=== PATIENT | female | born 1975 | race Caucasian/White ===

== ENCOUNTER 2016-05-13 09:59 | Emergency (ER) | payer OTHER ==
[~2016-05-13] VITALS: Wt 55.5 kg
[2016-05-13 10:41] LABS: URINE BLOOD (Dip) POC Trace-intact (NEGATIVE)
[2016-05-13] MEDS ORDERED: CEPH-443 PO (11:17)
--- NOTE | 2016-05-13 11:40 | ERD ---
ER Documentation Chief Complaint Date/Time DATE: 05/13/16 TIME: 11:37 Chief Complaint states she needs a test HPI Patient is a 40-year-old female who presents to the ED for test. She denies fever, chills, nausea, vomiting, diarrhea, pelvic pain, vaginal bleeding or pain. She is unsure of her last normal period and states that she did not have a period in March. Last normal menstrual period was sometime in February. She is currently sexually active with her and does not use protection. She is not on control. She has no pelvic pain. She has no complaints today. ROS All systems reviewed and are negative except as per history of present illness. Medications Home Meds Active Scripts Cephalexin* (Keflex*) 500 Mg Capsule, 500 MG PO BID for 7 Days, CAP Prov:ELVIA COLLIER PA-C 05/13/16 PMhx/Soc Medical and Surgical Hx: pt denies Medical Hx, pt denies Surgical Hx History of Surgery: No Anesthesia Reaction: No Hx Neurological Disorder: No Hx Respiratory Disorders: No Hx Cardiac Disorders: No Hx Psychiatric Problems: No Hx Miscellaneous Medical Probl: No Hx Alcohol Use: No Hx Substance Use: No Hx Tobacco Use: No Smoking Status: Never smoker FmHx Family History: No coronary disease, No diabetes, No other Physical Exam Vitals Vital Signs Date Time Temp Pulse Resp B/P Pulse Ox O2 Delivery O2 Flow Rate FiO2 05/13/16 10:11 98.2 82 20 110/56 99 Physical Exam GENERAL: Well-developed, well-nourished female. Appears in no acute distress. LUNG: Clear to auscultation bilaterally. No rhonchi, wheezing, rales or coarse breath sounds. HEART: Regular rate and rhythm. No murmurs, rubs or gallops. ABDOMEN: No scars, ecchymosis or rashes noted. Soft, nontender, and nondistended. Positive bowel sounds in all four quadrants. No rebound tenderness , no guarding. (-) McBurneys point tenderness. No CVA tenderness. SKIN: Normal color. Warm and dry. No rashes or lesions. Capillary refill < 2 seconds Results 24 hrs Laboratory Tests Test 05/13/16 10:44 Bedside Urine Blood Trace-intact Bedside Urine Glucose (UA) Negative Bedside Urine Ketones (LAB) Negative Bedside Urine Leukocyte Esterase (L Trace Bedside Urine Nitrite (LAB) Positive Bedside Urine Protein (LAB) Negative Bedside Urine pH (LAB) 7.0 Procedures/MDM ER COURSE: I kept the patient and/or family informed of laboratory and diagnostic imaging results throughout the emergency room course. LAB INTERPRETATION: UA showed positive nitrites, trace leukocytes and no hematuria urine test was positive MEDICAL DECISION MAKING: This is a 40-year-old female who presents with test check. Vital signs were reviewed. Patient is afebrile. Patient is not hypoxic. Patient has positive . Patient also has positive nitrites and trace leukocytes. Patient has a UTI. She does not have CVA tenderness is afebrile. She has no pelvic pain or vaginal bleeding and no complaints today in the ED. Low suspicion for ovarian torsion, PID, tuboovarian abscess, ectopic , bowel obstruction, pyelonephritis, UTI, appendicitis, cervicitis, septic , molar , HELLP syndrome, preeclampsia, eclampsia, placenta previa, placenta abruptia. I do not think a workup such as ultrasound blood work is necessary at this time as patient does not have pelvic pain and does not have bleeding. DISCHARGE: At this time, patient is stable for discharge and outpatient management with no new complaints during the ER course. Patient was sent home with Keflex and names of OB doctors in the area for patient to follow-up with.. Patient will be discharged home with instructions to recheck for new or worsening symptoms such as fever, nausea, weakness, LOC and to follow up with primary care in the next 1 -2 days. Patient was advised to return to the ER for any new or worsening symptoms. Plan was discussed and patient and/or family understands and agrees. Home instructions were given. Departure Diagnosis: Primary Impression: UTI (urinary tract infection) Urinary tract infection type: site unspecified Hematuria presence: without hematuria Qualified Code: N39.0 - Urinary tract infection without hematuria, site unspecified Additional Impressions: Positive urine test Encounter for laboratory test Condition: Stable Referrals: [facility] Hours: 8:00 am - 5:00 pm [facility] [place] [id number] [facility] [address] [place] [id number]ABUSLEME [address] [place] [address] DR. HENRY, JOSELINE [address] [place] [address] DR [facility] [address] [facility], [address] [address] DR [facility] [address] [place] [address] [facility] [address] [place] [address] [facility] [address] - DR FRITZ, [place] [address], [place] [address] [place], [place] [address] [facility]. [address], [place] [address] DR BARRIOS, FARID [address] [place] [address] Additional Instructions: Llame al doctor MAANA y carlos sonia GENA PARA DENTRO DE 1-2 WELSH.Dgale a la secretaria que nosotros le instruimos hacer esta gena.Avise o llame si pérez condicin se empeora antes de la gena. Regresa aqui si peor o no mejor. ELVIA COLLIER PA-C May 13, 2016 11:40
== END 2016-05-13 11:39 | disposition home or self-care (01) ==
LOC: FTE 09:59
DX: N39.0 Urinary tract infection, site not specified (principal); Z32.01 Encounter for pregnancy test, result positive
CPT/HCPCS: 81003; Z7502; 99283

== ENCOUNTER 2016-06-01 09:05 | Emergency (ER) | payer OTHER ==
[~2016-06-01] VITALS: Wt 68.0 kg
[~2016-06-01 09:05] MED LIST: CEPH-443 PO
[2016-06-01 11:37] LABS: ADD UMIC YES; URINE BILIRUBIN (Dip) NEGATIVE (NEGATIVE); URINE BLOOD (Dip) 3+ (NEGATIVE); URINE COLOR LT. YELLOW (YELLOW); URINE GLUCOSE (Dip) NEGATIVE (NEGATIVE); URINE KETONES (Dip) NEGATIVE (NEGATIVE); URINE LEUKOCYTE ESTERASE (Dip) NEGATIVE (NEGATIVE); URINE NITRITE (Dip) NEGATIVE (NEGATIVE); URINE TOTAL PROTEIN (Dip) NEGATIVE (NEGATIVE); URINE UROBILINOGEN (Dip) 0.2 E.U./dL (0.1-1.0)
--- NOTE | 2016-06-01 11:56 | RADRPT ---
PROCEDURE: US OB. CLINICAL INDICATION: Vaginal bleeding. TECHNIQUE: Transabdominal and transvaginal imaging of the gravid uterus was performed. Images are reviewed on a high-resolution PACS workstation. COMPARISON: None available. FINDINGS: A single intrauterine with a gestational sac and yolk sac is seen. No pole is ident ified. The mean sac diameter equals 0.74 cm. The estimated gestational age equals 5 weeks 2 days b y ultrasound criteria. No subchorionic hemorrhage is identified. The uterus measures 7.3 x 4.2 x 4.6 cm. The right ovary measures 2.0 x 1.4 x 1.6 cm and the left ova ry measures 3.3 x 1.9 x 2.1 cm. There is normal flow demonstrated within both ovaries. There is a be nign 1.9 cm simple left ovarian cyst. There are no adnexal masses and there is no free fluid within the pelvis. IMPRESSION: 1. Single intrauterine with an estimated gestational age of 5 weeks 2 days by ultrasound criteria and an estimated date of delivery of 01/30/2017. 2. Benign 1.9 cm left ovarian cyst. RPTAT: GG .Jerry Contreras MD, Date Time Electronically viewed and signed by .Jerry Contreras MD, MD on 06/01/2016 11:55 .P/
[2016-06-01 12:08] LABS: ADD SCAN DIFF NO
[2016-06-01 12:15] LABS: BASOPHILS % 0.1 % (0.0-2.0); EOSINOPHILS # 0.1 10^3/ul (0.0-0.5); HEMATOCRIT 34.1 % (37.0-47.0); HEMOGLOBIN 11.7 g/dl (12.0-16.0); LYMPHOCYTES # 1.2 10^3/ul (0.8-2.9); LYMPHOCYTES % 12.7 % (15.0-51.0); MEAN CORPUSCULAR HEMOGLOBIN 34.4 pg (29.0-33.0); MEAN CORPUSCULAR HGB CONC 34.3 g/dl (32.0-37.0); MEAN CORPUSCULAR VOLUME 100.3 fl (82.0-101.0); MEAN PLATELET VOLUME 8.4 fl (7.4-10.4); MONOCYTE # 0.6 10^3/ul (0.3-0.9); MONOCYTES % 6.4 % (0.0-11.0); NEUTROPHIL # 7.5 10^3/ul (1.6-7.5); NEUTROPHILS % 79.6 % (39.0-77.0); PLATELET COUNT 333 10^3/UL (140-415); RED CELL DISTRIBUTION WIDTH 12.3 % (11.5-14.5); WHITE BLOOD COUNT 9.5 10^3/ul (4.8-10.8)
[2016-06-01 12:16] LABS: MUCUS,URINE FEW
--- NOTE | 2016-06-01 14:22 | ERD ---
ER Documentation Chief Complaint Date/Time DATE: 06/01/16 TIME: 14:16 Chief Complaint VAG BLEED 6 WEEKS PREG HPI 40-year-old female presents to the ED for vaginal bleeding that started intermittently 1 week ago. States that she has had to change one pad per day. States that she is currently taking Macrobid for her urinary tract infection since she is experiencing hematuria. States that her last menses was on March 28, 2016. Reports that she is taking , folic acid, calcium, ferrous sulfate. Reports that her DIRECTOR OF PROPERTY MANAGEMENT is Dr. Silverman. Denies any chest pain, shortness of breath, abdominal pain, nausea, vomiting, diarrhea, vaginal discharge. ROS All systems reviewed and are negative except as per history of present illness. Medications Home Meds Active Scripts Cephalexin* (Keflex*) 500 Mg Capsule, 500 MG PO BID for 7 Days, CAP Prov:ELVIA COLLIER PA-C 05/13/16 Allergies Allergies: Coded Allergies: No Known Allergy (Unverified , 06/01/16) PMhx/Soc Medical and Surgical Hx: pt denies Medical Hx, pt denies Surgical Hx History of Surgery: No Anesthesia Reaction: No Hx Neurological Disorder: No Hx Respiratory Disorders: No Hx Cardiac Disorders: No Hx Psychiatric Problems: No Hx Miscellaneous Medical Probl: No Hx Alcohol Use: No Hx Substance Use: No Hx Tobacco Use: No Smoking Status: Never smoker Physical Exam Vitals Vital Signs Date Time Temp Pulse Resp B/P Pulse Ox O2 Delivery O2 Flow Rate FiO2 06/01/16 09:17 99.0 78 18 98/54 99 Physical Exam Const: [id number], well-nourished. In no acute distress. Head: Atraumatic, normocephalic Eyes: Normal Conjunctiva without injection. No purulent discharge. ENT: Normal external ear, nose. Moist oropharynx without tonsillar exudates. Non -erythematous pharynx. Uvula midline. No drooling. No trismus. Neck: No cervical midline tenderness. Full range of motion. No meningismus. No cervical lymphadenopathy. No JVD. Resp: Clear to auscultation bilaterally. No wheezing, rhonchi, rales, or crackles. No accessory muscle use. No retractions. Cardio: Regular rate and rhythm. No murmurs, rubs or gallops. Abd: Soft, non distended. Normal bowel sounds. No palpable masses. No rebound tenderness. No guarding. Negative McBurney's point. Negative psoas sign. Negative obturator sign. : See exam in [facility]. Skin: No petechiae or rashes Back: No midline tenderness. No CVA tenderness. Ext: No cyanosis, or edema. Neur: Awake and alert. Normal gait. Normal coordination. Psych: Normal Mood and Affect Result Diagram: 06/01/16 1200 Results 24 hrs Laboratory Tests Test 06/01/16 11:00 06/01/16 12:00 Urine Amorphous Phosphates FEW Urine Bilirubin NEGATIVE Urine Clarity CLEAR Urine Color LT. YELLOW Urine Glucose NEGATIVE% Urine Hemoglobin 3+ Urine Ketones NEGATIVE Urine Leukocyte Esterase NEGATIVE Urine Microscopic RBC 10-25/HPF Urine Microscopic WBC NONE SEEN/HPF Urine Mucus FEW Urine Nitrite NEGATIVE Urine Specific Purdys 1.020 Urine Total Protein NEGATIVE Urine Urobilinogen 0.2 E.U./dL Urine pH 6.0 Basophils # 0.010^3/ul Basophils % 0.1% Beta HCG, Quantitative 60223.0mIU/ml Eosinophils # 0.110^3/ul Eosinophils % 1.0% Hematocrit 34.1% Hemoglobin 11.7g/dl Lymphocytes # 1.210^3/ul Lymphocytes % 12.7% Mean Corpuscular Hemoglobin 34.4pg Mean Corpuscular Hemoglobin Concent 34.3g/dl Mean Corpuscular Volume 100.3fl Mean Platelet Volume 8.4fl Monocytes # 0.610^3/ul Monocytes % 6.4% Neutrophils # 7.510^3/ul Neutrophils % 79.6% Nucleated Red Blood Cells # 0.010^3/ul Nucleated Red Blood Cells % 0.0/100WBC Platelet Count 86782^3/UL Red Blood Count 3.4010^6/ul Red Cell Distribution Width 12.3% White Blood Count 9.510^3/ul Procedures/[facility] 40-year-old female with no significant past medical history presents the ED complaining of vaginal bleeding and is currently . Patient is afebrile and nontoxic-appearing. Patient has normal vital signs. An ultrasound, beta- hCG, CBC, type and RH, UA was ordered to evaluate patient. CBC: No evidence of severe infection or anemia Urine: No elevation in nitrites, leukocyte esterase, hematuria. No evidence of UTI Rh: A positive No indication for Rhogam at this time. beta Hc PROCEDURE: US OB. CLINICAL INDICATION: Vaginal bleeding. TECHNIQUE: Transabdominal and transvaginal imaging of the gravid uterus was performed. Images are reviewed on a high-resolution PACS workstation. COMPARISON: None available. FINDINGS: A single intrauterine with a gestational sac and yolk sac is seen. No pole is identified. The mean sac diameter equals 0.74 cm. The estimated gestational age equals 5 weeks 2 days by ultrasound criteria. No subchorionic hemorrhage is identified. The uterus measures 7.3 x 4.2 x 4.6 cm. The right ovary measures 2.0 x 1.4 x 1.6 cm and the left ovary measures 3.3 x 1.9 x 2.1 cm. There is normal flow demonstrated within both ovaries. There is a benign 1.9 cm simple left ovarian cyst. There are no adnexal masses and there is no free fluid within the pelvis. IMPRESSION: 1. Single intrauterine with an estimated gestational age of 5 weeks 2 days by ultrasound criteria and an estimated date of delivery of 01/30/2017. 2. Benign 1.9 cm left ovarian cyst. Patient's bleeding symptoms have stabilized while in the department. Patient has a single intrauterine estimated to be 5 weeks and 2 days based on ultrasound. Low suspicion for symptomatic anemia, ectopic , sepsis, PID, appendicitis, ovarian torsion, tubo-ovarian abscess, surgical abdomen, or other emergent conditions. Patient was educated that there is a risk for threatened . Patient to follow up with DIRECTOR OF PROPERTY MANAGEMENT in 2 days for further evaluation and treatment. Patient is to return sooner to the ED for any worsening symptoms. Patient's questions were answered. Patient understood and agreed with discharge plan. Departure Diagnosis: Primary Impression: Vaginal bleeding in patient at less than 20 weeks ges... Condition: Stable Patient Instructions: Bleeding During Early Referrals: NORM MOSLEY MD (PCP) [facility] YOU HAVE RECEIVED A MEDICAL SCREENING EXAM AND THE RESULTS INDICATE THAT YOU DO NOT HAVE A CONDITION THAT REQUIRES URGENT TREATMENT IN THE EMERGENCY DEPARTMENT. FURTHER EVALUATION AND TREATMENT OF YOUR CONDITION CAN WAIT UNTIL YOU ARE SEEN IN YOUR DOCTORS OFFICE WITHIN THE NEXT 1-2 DAYS. IT IS YOUR RESPONSIBILITY TO MAKE AN APPOINTMENT FOR FOLOW-UP CARE. IF YOU HAVE A PRIMARY DOCTOR --you should call your primary doctor and schedule an appointment IF YOU DO NOT HAVE A PRIMARY DOCTOR YOU CAN CALL OUR PHYSICIAN REFERRAL HOTLINE AT IF YOU CAN NOT AFFORD TO SEE A PHYSICIAN YOU CAN CHOSE FROM THE FOLLOWING [facility] [address] [facility] [address] [address] [facility] [address] [facility] [address] [facility] [address] [facility]. [facility] [address] [facility]. [facility] YOU HAVE RECEIVED A MEDICAL SCREENING EXAM AND THE RESULTS INDICATE THAT YOU DO NOT HAVE A CONDITION THAT REQUIRES URGENT TREATMENT IN THE EMERGENCY DEPARTMENT. FURTHER EVALUATION AND TREATMENT OF YOUR CONDITION CAN WAIT UNTIL YOU ARE SEEN IN YOUR DOCTORS OFFICE WITHIN THE NEXT 1-2 DAYS. IT IS YOUR RESPONSIBILITY TO MAKE AN APPOINTMENT FOR FOLOW-UP CARE. IF YOU HAVE A PRIMARY DOCTOR --you should call your primary doctor and schedule and appointment IF YOU DO NOT HAVE A PRIMARY DOCTOR YOU CAN CALL OUR PHYSICIAN REFERRAL HOTLINE AT . IF YOU CAN NOT AFFORD TO SEE A PHYSICIAN YOU CAN CHOSE FROM THE FOLLOWING [facility]: [facility] [address] [place] [address] [facility] [address] [place] [address] [facility] [address] [place] [address] DIRECTOR OF PROPERTY MANAGEMENT [place] [address] [facility] [address] [place], [place] [id number] OFFICE FAX , ELVIS [address] [place] [address] DR. HENRY, VALENTINE [address] [place], [place] [id number] DR MOREAU [facility] [address] [facility], [address], [place] [address] FER FRANCOOZ [address] [facility], [place] [address] [facility] [address] [place] [address] [facility], [facility] [address] - CAMRON SANCHEZ [address], [place] [address] [place] [address] [facility]. [address], [place] [address] LUCA MCKNIGHT [address] [place], [place] [id number] [facility] Hours: 8:00 am - 5:00 pm Additional Instructions: FOLLOW UP WITH YOUR DIRECTOR OF PROPERTY MANAGEMENT in 2 days. Return to this facility if you are not improving as expected. ZARINA DEUTSCH PA-C Jun 01, 2016 14:22
[2016-06-01 14:48] VITALS: BP 103/74; PULSE 72; RESP 18; TEMP 98.7
== END 2016-06-01 14:47 | disposition home or self-care (01) ==
LOC: FTE 09:05
DX: O20.9 Hemorrhage in early pregnancy, unspecified (principal); Z3A.01 Less than 8 weeks gestation of pregnancy
CPT/HCPCS: 76801; 76817; 81001; 84702; 85025; 86900; 86901; Z7502; 81003

== ENCOUNTER 2016-06-04 21:43 | Emergency (ER) | payer OTHER ==
[~2016-06-04] VITALS: Ht 160 cm; Wt 56.0 kg
[2016-06-04 21:46] VITALS: Ht 160 cm; Wt 56.0 kg
[2016-06-04] MEDS ORDERED: ACETAMINOPHEN 325 MG TAB PO STA (22:35)
[2016-06-04 23:06] LABS: ADD SCAN DIFF NO
[2016-06-04 23:36] LABS: ADD UMIC YES; URINE BILIRUBIN (Dip) NEGATIVE (NEGATIVE); URINE BLOOD (Dip) 3+ (NEGATIVE); URINE COLOR DK. RED (YELLOW); URINE KETONES (Dip) 15 (NEGATIVE); URINE LEUKOCYTE ESTERASE (Dip) 2+ (NEGATIVE); URINE NITRITE (Dip) POSITIVE (NEGATIVE); URINE TOTAL PROTEIN (Dip) 4+ (NEGATIVE); URINE UROBILINOGEN (Dip) 2.0 E.U./dL (0.1-1.0)
[2016-06-04 23:39] LABS: URINE RBCS >200 /HPF (0)
[2016-06-04 23:40] LABS: BACTERIA,URINE MODERATE; SQUAMOUS EPITHELIAL CELL,UR MANY
[2016-06-04 23:54] LABS: BASOPHILS % 0.2 % (0.0-2.0); EOSINOPHILS % 0.3 % (0.0-7.0); HEMATOCRIT 36.7 % (37.0-47.0); HEMOGLOBIN 12.7 g/dl (12.0-16.0); LYMPHOCYTES # 1.4 10^3/ul (0.8-2.9); LYMPHOCYTES % 10.4 % (15.0-51.0); MEAN CORPUSCULAR HEMOGLOBIN 34.7 pg (29.0-33.0); MEAN CORPUSCULAR HGB CONC 34.6 g/dl (32.0-37.0); MEAN CORPUSCULAR VOLUME 100.3 fl (82.0-101.0); MEAN PLATELET VOLUME 8.7 fl (7.4-10.4); MONOCYTE # 0.7 10^3/ul (0.3-0.9); MONOCYTES % 5.3 % (0.0-11.0); NEUTROPHIL # 10.9 10^3/ul (1.6-7.5); NEUTROPHILS % 83.4 % (39.0-77.0); PLATELET COUNT 362 10^3/UL (140-415); RED BLOOD COUNT 3.66 10^6/ul (4.20-5.40); RED CELL DISTRIBUTION WIDTH 12.2 % (11.5-14.5)
--- NOTE | 2016-06-05 00:59 | RADRPT ---
PROCEDURE: US OB. CLINICAL INDICATION: , vaginal bleeding. TECHNIQUE: Multiple sonographic images of the pelvis were obtained. Transabdominal and transvagin al views of the pelvis are available for review. The images were reviewed on a PACS workstation. COMPARISON: No prior studies are available for comparison. FINDINGS: The uterus measures 7.1 x 3.8 x 4.6 cm. No intrauterine is identified. The endometrium is mildly heterogeneous and contains minimal vascularity. The endometrial thickness measures 1.1 cm. The right ovary measures 2.4 x 0.8 x 1.2 cm. The left ovary measures 2.6 x 1.5 x 2.0 cm. There is a 1.9 cm simple left ovarian cyst, probably a corpus luteum. Blood flow is demonstrated to both ovari es. The adnexa are unremarkable. There is no free pelvic fluid. IMPRESSION: 1. No intrauterine is identified. If there is clinical concern for ectopic , cl ose follow-up with serial Beta HCG and possible repeat pelvic ultrasound is recommended. 2. Mildly heterogeneous and slightly vascular endometrium, nonspecific. 3. Left ovarian corpus luteum cyst. RPTAT: HTAR .Arnol De La Rosa MD, Date Time Electronically viewed and signed by .Arnol De La Rosa MD, on 06/05/2016 00:59 .R/
[2016-06-05] MEDS ORDERED: ACET325T33 PO (01:16)
[2016-06-05 01:46] VITALS: BP 108/55; PULSE 84; RESP 16
--- NOTE | 2016-06-05 04:15 | ERD ---
ER Documentation Chief Complaint Date/Time DATE: 06/05/16 TIME: 04:07 Chief Complaint 5 weeks , vag bleeding today HPI This patient is a 40-year-old female who is presenting to the emergency department with complaints of "losing her baby." The patient states she went to the bathroom approximately 1 hour ago and saw lots of blood with a lobular structure in the toilet. The patient brought the specimen in a cup to the emergency department. The patient was seen here 3 days ago and had a normal ultrasound with intrauterine at approximately 5 weeks. The patient additionally reports some suprapubic cramping bilaterally which began this morning. The patient denies fevers, chills, or other symptoms at this time. Symptoms are currently moderate in severity. ROS All systems reviewed and are negative except as per history of present illness. Medications Home Meds Active Scripts Acetaminophen* (Tylenol*) 325 Mg Tablet, 2 TAB PO Q6 Y for PAIN AND OR ELEVATED TEMP, #30 TAB Prov:KRISTYN CHERY PA-C 06/05/16 Cephalexin* (Keflex*) 500 Mg Capsule, 500 MG PO BID for 7 Days, CAP Prov:ELVIA COLLIER PA-C 05/13/16 Allergies Allergies: Coded Allergies: No Known Allergy (Unverified , 06/01/16) PMhx/Soc Medical and Surgical Hx: pt denies Medical Hx, pt denies Surgical Hx History of Surgery: No Anesthesia Reaction: No Hx Neurological Disorder: No Hx Respiratory Disorders: No Hx Cardiac Disorders: No Hx Psychiatric Problems: No Hx Miscellaneous Medical Probl: No Hx Alcohol Use: No Hx Substance Use: No Hx Tobacco Use: No Smoking Status: Never smoker FmHx Noncontributory for chief complaint Physical Exam Vitals Vital Signs Date Time Temp Pulse Resp B/P Pulse Ox O2 Delivery O2 Flow Rate FiO2 06/05/16 01:46 84 16 108/55 100 Room Air 06/04/16 21:46 98.2 103 20 118/64 100 Physical Exam INITIAL VITAL SIGNS: Reviewed by me. GENERAL: Alert and interactive. No acute distress. HEAD: Head is normocephalic and atraumatic. EYES: EOMI. No scleral icterus. No conjunctival injection. ENT: Moist mucosa. NECK: Supple. Full range of motion. RESPIRATORY: Normal respiratory effort. Clear breath sounds bilaterally. No wheezing, rales, or rhonchi. CV: Regular rate and rhythm. Normal S1 S2. No S3 or S4. No murmurs. ABDOMEN: Soft, non-distended, non-tender. No guarding. No rebound. No masses. : Mild bilateral suprapubic tenderness to palpation, worse on the right side. There is no CVA tenderness bilaterally. EXTREMITIES: No deformity. SKIN: Warm and dry. NEUROLOGIC: Alert and oriented x 4. Speech is normal. Moves all extremities equally. No motor or sensory deficits noted. Result Diagram: 06/04/162224 Results 24 hrs Laboratory Tests Test 06/04/16 22:00 06/04/16 22:25 Urine Bacteria MODERATE Urine Bilirubin NEGATIVE Urine Clarity CLOUDY Urine Color DK. RED Urine Glucose 0.1%% Urine Hemoglobin 3+ Urine Ketones 15 Urine Leukocyte Esterase 2+ Urine Microscopic RBC >200/HPF Urine Microscopic WBC 10-25/HPF Urine Nitrite POSITIVE Urine Specific Somis 1.020 Urine Squamous Epithelial Cells MANY Urine Total Protein 4+ Urine Urobilinogen 2.0 E.U./dL Urine pH 5.0 Basophils # 0.010^3/ul Basophils % 0.2% Beta HCG, Quantitative 6049.9mIU/ml Eosinophils # 0.010^3/ul Eosinophils % 0.3% Hematocrit 36.7% Hemoglobin 12.7g/dl Lymphocytes # 1.410^3/ul Lymphocytes % 10.4% Mean Corpuscular Hemoglobin 34.7pg Mean Corpuscular Hemoglobin Concent 34.6g/dl Mean Corpuscular Volume 100.3fl Mean Platelet Volume 8.7fl Monocytes # 0.710^3/ul Monocytes % 5.3% Neutrophils # 10.910^3/ul Neutrophils % 83.4% Nucleated Red Blood Cells # 0.010^3/ul Nucleated Red Blood Cells % 0.0/100WBC Platelet Count 83191^3/UL Red Blood Count 3.6610^6/ul Red Cell Distribution Width 12.2% White Blood Count 13.010^3/ul Current Medications Medications (Trade) Dose Ordered Sig/Jase Route PRN Reason Start Time Stop Time Status Last Admin Dose Admin Acetaminophen (Tylenol Tab) 650 mg ONCE STAT PO 06/04/16 22:35 06/04/16 22:37 DC 06/04/16 23:02 Procedures/MDM EMERGENCY DEPARTMENT COURSE / MEDICAL DECISION MAKING: This is a 40-year-old female who comes to the emergency room secondary to complaints of suprapubic pain and possibly losing her baby. The patient was given p.o. Tylenol in the department. On re-evaluation, the patient was feeling improved. Lab results reviewed and showed no signs of anemia. Beta hCG was downtrending since her last visit 3 days ago. Since her last visit the beta hCG had reduced by more than half. Radiology: PROCEDURE: US OB. CLINICAL INDICATION: , vaginal bleeding. TECHNIQUE: Multiple sonographic images of the pelvis were obtained. Transabdominal and transvaginal views of the pelvis are available for review. The images were reviewed on a PACS workstation. COMPARISON: No prior studies are available for comparison. FINDINGS: The uterus measures 7.1 x 3.8 x 4.6 cm. No intrauterine is identified. The endometrium is mildly heterogeneous and contains minimal vascularity. The endometrial thickness measures 1.1 cm. The right ovary measures 2.4 x 0.8 x 1.2 cm. The left ovary measures 2.6 x 1.5 x 2.0 cm. There is a 1.9 cm simple left ovarian cyst, probably a corpus luteum. Blood flow is demonstrated to both ovaries. The adnexa are unremarkable. There is no free pelvic fluid. IMPRESSION: 1. No intrauterine is identified. If there is clinical concern for ectopic , close follow-up with serial Beta HCG and possible repeat pelvic ultrasound is recommended. 2. Mildly heterogeneous and slightly vascular endometrium, nonspecific. 3. Left ovarian corpus luteum cyst. RPTAT: HTAR .Arnol De La Rosa MD, MD Date Time Electronically viewed and signed by .Arnol De La Rosa MD, MD on 06/05/2016 00:59 I discussed this case with the on-call labor wrist, , who agreed with the ED course and recommended the patient follow-up as soon as possible with her SUPERANNUATION CLERK doctor. The primary diagnosis is complete . Secondary diagnosis is vaginal bleeding I have low suspicion for ectopic , ovarian torsion, ovarian or tubular abscess, septicemia, or other emergent conditions at this time. Discharge: I have discussed the lab results and diagnostic findings with the patient and answered any questions or concerns. The patient was discharged with a prescription for acetaminophen. The patient was advised to followup with their PMD in 1-2 days and to return to the Emergency Department if there are any new or worsening symptoms. The patient was advised that she must follow-up with her SUPERANNUATION CLERK physician as soon as possible. The patient understood and agreed with the diagnosis, treatment and plan. The patient is stable for discharge at this time. Departure Diagnosis: Primary Impression: Complete Additional Impression: Vaginal bleeding Condition: Fair Patient Instructions: Miscarriage, Spontaneous (Completed) Referrals: ON LICENSE OF [facility] YOU HAVE RECEIVED A MEDICAL SCREENING EXAM AND THE RESULTS INDICATE THAT YOU DO NOT HAVE A CONDITION THAT REQUIRES URGENT TREATMENT IN THE EMERGENCY DEPARTMENT. FURTHER EVALUATION AND TREATMENT OF YOUR CONDITION CAN WAIT UNTIL YOU ARE SEEN IN YOUR DOCTORS OFFICE WITHIN THE NEXT 1-2 DAYS. IT IS YOUR RESPONSIBILITY TO MAKE AN APPOINTMENT FOR FOLOW-UP CARE. IF YOU HAVE A PRIMARY DOCTOR --you should call your primary doctor and schedule an appointment IF YOU DO NOT HAVE A PRIMARY DOCTOR YOU CAN CALL OUR PHYSICIAN REFERRAL HOTLINE AT IF YOU CAN NOT AFFORD TO SEE A PHYSICIAN YOU CAN CHOSE FROM THE FOLLOWING ON LICENSE OF [facility] [address] [facility]. [facility] [address] [facility] [facility] [address] [facility] [address] [facility] [place] SUPERANNUATION CLERK [place] [address] [facility] [address] [place] [address]LEME [address] [address] [address] [place] [address] [place] [address] [address] MOREAU, [facility] [address], [address], [place] [address] [address] RENEE, [facility] [address] [facility], [place] [address] [address] [address] [place] [address] [address] [facility] [address] [address]ITZ, [facility] [address], [place] [address] [address] [place], [place] [address] [facility]. [address], [place] [address] DR BARRIOS, [facility] [address] [place], [place] [id number] Additional Instructions: No mas mejor en 2-3 soliz, regresar. Mas peor en 24 horas, regresear rapidamente. Ir a doctor primario in 5-7 soliz. Usar instrucciones cuando laina medicamento. KRISTYN CHERY PA-C Jun 05, 2016 04:15
[2016-06-05] MEDS ORDERED: CEPH-443 PO (05:04)
== END 2016-06-05 01:46 | disposition home or self-care (01) ==
LOC: FTE 21:43
DX: O03.9 Complete or unspecified spontaneous abortion without complication (principal)
CPT/HCPCS: 36415; 76801; 76817; 81001; 81003; 84702; 85025; 86900; 86901; Z7502; Z7610